=== PATIENT | male | born 1945 | race Caucasian/White ===

== ENCOUNTER 2020-08-08 17:21 | Emergency (ER) | payer BC, OTHER ==
[2020-08-08 17:29] VITALS: TEMP 98.2; BMI 27.3
--- NOTE | 2020-08-08 17:48 | PDOC ---
History of Present Illness - General Chief Complaint: Seizure Stated Complaint: WEAK/EVALUATION Time Seen by Provider: 08/08/20 17:46 History Source: Patient Exam Limitations: No Limitations - History of Present Illness Initial Comments: 08/08/20 17:47 HPI: This is a 75 y/o male with a PMH of epilepsy on Keppra, colon cancer s/p resection and chemo, pre-diabetes, HTN, HLD, CHF, afib on eliquis and sleep apnea presenting to the ED because of a presumed seizure that occurred last night while he was sleeping. Per the , she tried to wake him up at 8am and he was too tired to get up which is atypical. Most of his seizures have occurred at night, and were followed by a period of weakness and lethargy. His last seizure was in 2013, and he is compliant with his Keppra. Last dose was this a.m. He just completed a course of chemo for his colon cancer in April and was celebrating good lab results last night with one glass of alcohol. He did not wear his mouth guard last night which is prescribed for his sleep apnea, which was a suspected trigger for his seizures. Additionally, the also notes that he had a resting tremor in his right hand this afternoon which is not typical of his seizures in the past. The patient reports that he feels back to his baseline mentally, but still endorses feeling tired and weak. Denies recent illness, chest pain, cough, SOB, abdominal pain, N/V diarrhea, headache. PCP: Dr. Anand Neuro: Dr. Macias ROS: GENERAL/CONSTITUTIONAL: No fever/chills. Yes weakness. HEAD, EYES, EARS, NOSE AND THROAT: No change in vision. No sore throat. CARDIOVASCULAR: No chest pain or shortness of breath. RESPIRATORY: No cough, wheezing GASTROINTESTINAL: No nausea, vomiting GENITOURINARY: No dysuria, frequency MUSCULOSKELETAL: No joint or muscle swelling or pain. SKIN: No rash NEUROLOGIC: No headache, or change in strength/sensation. R. resting arm tremor which has resolved. ALLERGIC/IMMUNOLOGIC: No hives or skin allergy. PMH: epilepsy on Keppra, colon cancer s/p resection and chemo, pre-diabetes, HTN, HLD, CHF, afib on eliquis, and sleep apnea PSx: Partial colon resection Social Hx: Denied tobacco, 1 glass etoh last night Meds: See nurse note Allergies: Denied PE: GENERAL: Awake, alert, and fully oriented, in no acute distress. Non toxic appearing. Patient conversational. HEAD: No signs of trauma EYES: PERRLA, EOMI ENT: Hearing grossly normal, Moist mucosa NECK: Normal ROM, supple LUNGS: Breath sounds equal, clear to auscultation bilaterally. No wheezes, and no crackles HEART: Normal S1 and S2. Systolic murmur. ABDOMEN: Soft, nontender, normoactive bowel sounds. EXTREMITIES: Normal range of motion, no edema. R. lower leg prosthesis. Strength and sensation intact bilaterally in upper and lower extremities. NEUROLOGICAL: Cranial nerves II through XII grossly intact. Normal speech. SKIN: Warm, Dry, normal turgor, no rashes or lesions noted. MDM: 08/08/20 18:20 This is a 75 y/o male with a PMH of epilepsy on Keppra presenting to the ED following a presumed seizure while he was sleeping last night. - Typical of his previous seizures which also occurred while he was sleeping - back to baseline per patient and . - Hasn't had a seizure in 6 years though, so will check fingerstick and head CT given recent colon cancer to check for possible mets - Seizure likely due to etoh last night and not wearing his mouth guard - Spoke with Dr. Ramirez, [employer] consultant for Dr. Macias who states she's ok with head CT and if normal to d/c with follow-up - fingerstick 228 08/08/20 19:41 CT head w/o contrast: No evidence of intracranial pathology - Most likely due to alcohol and not wearing mouth guard. - Patient stable for d/c with neuro follow-up and return precautions Past History - Medical History Allergies/Adverse Reactions: Allergies Allergy/AdvReac Type Severity Reaction Status Date / Time No Known Allergies Allergy Verified 10/26/19 09:53 Home Medications: Ambulatory Orders Allopurinol [Zyloprim -] 300 mg PO DAILY 03/10/14 Atenolol/Chlorthalidone [Tenoretic 50/25 Tablet] 1 each PO BID 03/10/14 Ezetimibe/Simvastatin [Vytorin 10-40 mg Tablet] 1 each PO DAILY 03/10/14 Furosemide [Lasix -] 20 mg PO DAILY 03/10/14 Metformin HCl [Glucophage] 1,000 mg PO BID 03/10/14 Potassium Chloride 20 meq PO DAILY 03/10/14 levETIRAcetam [Keppra -] 500 mg PO BID #14 tablet 03/25/14 Prednisolone Acetate [Pred Forte 1% -] 1 drop OU Q2H 08/17/14 Sitagliptin Phosphate [Januvia] 100 mg PO DAILY 08/17/14 Anemia: No Asthma: No Cancer: No Cardiac Disorders: No CVA: No COPD: No CHF: No Dementia: No Diabetes: Yes GI Disorders: No Disorders: No HTN: Yes Hypercholesterolemia: Yes Liver Disease: No Seizures: Yes Thyroid Disease: No - Surgical History Abdominal Surgery: No Appendectomy: No Cardiac Surgery: No Cholecystectomy: No Lung Surgery: No Neurologic Surgery: No Orthopedic Surgery: Yes (RBK AMPUTATION 1976) - Immunization History Immunization Up to Date: Yes - Psycho-Social/Smoking History Smoking History: Never smoked Have you smoked in the past 12 months: No Number of Cigarettes Smoked Daily: 0 If you are a former smoker, when did you quit?: 1980 Cigars Per Day: 0 Information on smoking cessation initiated: No - Substance Abuse Hx (Audit-C & DAST Scrn) How often the patient has a drink containing alcohol: Monthly or less How often the patient has six or more drinks on one occasion: Less than monthly Score: In Men: 4 or > Positive; In Women: 3 or > Positive: 2 Screen Result (Pos requires Nsg. Audit-10AR): Negative In the last yr the pt used illegal drug/Rx for NonMed reason: No Score: Yes response is considered Positive: 0 Screen Result (Positive result requires Nsg. DAST-10): Negative *Physical Exam - Vital Signs Last Vital Signs Temp Pulse Resp BP Pulse Ox 98.2 F 79 16 117/53 L 98 08/08/20 17:26 08/08/20 17:26 08/08/20 17:26 08/08/20 17:26 08/08/20 17:26 Heart Score/ECG Review - ECG Intrepretation Comment:: 08/08/20 19:[address] elevations. Atrial fibrillation with competing junctional pacemaker Prolonged QT Vent rate 83bpm QRS duration 84ms QT/QTc 418/491ms Discharge - Discharge Information Problems reviewed: Yes Clinical Impression/Diagnosis: Seizure Qualifiers: Convulsion type: unspecified Qualified Code(s): R56.9 - Unspecified convulsions Condition: Stable Disposition: HOME - Admission No - Follow up/Referral Referrals: Jai Anand MD [Primary Care Provider] - - Patient Discharge Instructions Patient Printed Discharge Instructions: DI for Seizure Disorder -- Adult Additional Instructions: You came to the emergency department today because you had a seizure last night. We did a CT scan of your head and everything looked okay. Please follow-up with your neurologist, Dr. Macias in the next few days. - Post Discharge Activity
--- NOTE | 2020-08-08 19:00 | PDOC ---
Documentation entered by Isai William SCRIBE, acting as scribe for Desiree Perry DO. Desiree Perry, : This documentation has been prepared by the Nataliia pandey Xhesika, SCRIBE, under my direction and personally reviewed by me in its entirety. I confirm that the documentation accurately reflects all work, treatment, procedures, and medical decision making performed by me. Attending Attestation - Resident Resident Name: AltafMariya - ED Attending Attestation I have performed the following: I have examined & evaluated the patient, The case was reviewed & discussed with the resident, I agree w/resident's findings & plan, Exceptions are as noted - HPI HPI: 08/08/20 17:48 The patient is a 75y/o M with a pmh of HTN, HLD, fever disorder, preDM, Afib on Eliquis, colon ca (finished chemo in April with mets to liver only) and seizures (complaint with medication, last breakthrough seizure was over 3 years ago) who presents to the ED s/p Seizure and generalized weakness. Pt states he had outpatient labs done with Dr. Anand and everything was normal. Per , pt had one drink alst night. states pt was unarousable this morning and pt did not wake up to eat breakfast, which usually happens when he has had his previous seizures. Pt states when he woke up he felt weak, was unable to walk or get out of bed and his arm felt shaky afterwards. Pt states he took his Keppra this morning when he got up and ate a banana. Pt state he called his Neurologist and was told to come to the ED for further evaluation. Pt denies chest pain, SOB, headache or dizziness. Pt denies fevers, chills, N/V/D. Denies any URI symptoms. Allergies: NKDA PCP: Jai Anne - Physicial Exam PE: 08/08/20 17:50 GENERAL: Awake, alert, and fully oriented, in no acute distress HEAD: No signs of trauma NECK: Normal ROM, supple, no lymphadenopathy, JVD, or masses LUNGS: Breath sounds equal, clear to auscultation bilaterally. No wheezes, and no crackles HEART: +irregularly irregular , no murmurs, rubs or gallops ABDOMEN: Soft, nontender, normoactive bowel sounds. No guarding, no rebound. No masses EXTREMITIES: Normal range of motion, no edema. No clubbing or cyanosis. No cords, erythema.No c-spine or L spine tenderness. NEUROLOGICAL: Cranial nerves II through XII grossly intact. Upper and L lower extremities strength intact. Moving all extremities SKIN: Warm, Dry, normal turgor, no rashes lesions noted. - Medical Decision Making 08/08/20 18:47 a/p: 75yo male with a hx of epilepsy with a poss seizure today -first break through seizure in years -compliant with meds, did drink etoh last night -resident discussed the case with his neurologist who requests head ct -pt with recent hx of colon ca s/p chemo and surgical resection -will check glu -no other systemic complaints -will monitor and reassesss -given a bagged dinner 08/08/20 20:24 no acute findings on head ct stable for dc to home no seizure activity while in the ER Heart Score/ECG Review - ECG Intrepretation Comment:: 08/08/20 18:52 afib at 83, R axis, qtc 491, no acute st/t wave findings, abnl ekg Discharge - Discharge Information Problems reviewed: Yes Clinical Impression/Diagnosis: Seizure Qualifiers: Convulsion type: unspecified Qualified Code(s): R56.9 - Unspecified convulsions Condition: Stable Disposition: HOME - Admission No - Follow up/Referral Referrals: Jai Anand MD [Primary Care Provider] - - Patient Discharge Instructions Patient Printed Discharge Instructions: DI for Seizure Disorder -- Adult Additional Instructions: You came to the emergency department today because you had a seizure last night. We did a CT scan of your head and everything looked okay. Please follow-up with your neurologist, Dr. Macias in the next few days. - Post Discharge Activity
[2020-08-08 20:41] VITALS: BP 123/77; PULSE 90
--- NOTE | 2020-08-09 12:37 | EKG ---
Test Reason : Blood Pressure : / mmHG Vent. Rate : 083 BPM Atrial Rate : 070 BPM P-R Int : 000 ms QRS Dur : 084 ms QT Int : 418 ms P-R-T Axes : 000 100 029 degrees QTc Int : 491 ms ATRIAL FIBRILLATION RIGHTWARD AXIS PROLONGED QT ABNORMAL ECG WHEN COMPARED WITH ECG OF 05-JUL-2017 09:16, ATRIAL FIBRILLATION HAS REPLACED SINUS RHYTHM Confirmed by WILLIAMS OCHOA MD ([id number]) on 08/09/2020 12:37:40 PM Referred By: Confirmed By:WILLIAMS OCHOA MD
== END 2020-08-08 20:42 | disposition home or self-care (01) ==
LOC: JER 17:21
DX: R56.9 Unspecified convulsions (principal)
CPT/HCPCS: 70450-TC; 82962; 93005; 93010; 99285-25

== ENCOUNTER 2021-06-28 21:17 | Inpatient (IN) | payer BC, OTHER ==
[2021-06-28 21:22] VITALS: BMI 27.2
[2021-06-28 23:27] LABS: BASO % 0.4 % (0-2.0); EOS % 2.5 % (0-4.5); HEMATOCRIT 33.6 % (35.4-49); HEMOGLOBIN 11.5 GM/dL (11.7-16.9); LYMPH % 14.8 % (8-40); MCH 32.6 pg (25.7-33.7); MCHC 34.4 g/dl (32.0-35.9); MEAN CELL VOLUME 94.8 fl (80-96); MEAN PLT VOLUME 7.9 fl (7.5-11.1); MONO % 13.7 % (3.8-10.2); NEUT % 68.6 % (42.8-82.8); PLATELET COUNT 233 10^3/uL (134-434); RBC 3.55 M/mm3 (4.00-5.60); RDW 14.5 % (11.9-15.9); WHITE BLOOD COUNT 7.6 K/mm3 (4.0-10.0)
[2021-06-28 23:49] LABS: CHLORIDE 106 mmol/L (98-107); SODIUM 141 mmol/L (136-145)
[2021-06-28 23:51] LABS: CALCIUM 8.2 mg/dL (8.5-10.1)
[2021-06-28 23:52] LABS: ALBUMIN 3.8 g/dl (3.4-5.0); ANION GAP 12 MMOL/L (8-16); BLOOD UREA NITROGEN 17.5 mg/dL (7-18); CO2 23 mmol/L (21-32); GLUCOSE,RANDOM 92 mg/dL (74-106)
[2021-06-28 23:55] LABS: CREATININE 1.3 mg/dL (0.55-1.3); SGOT/AST 32 U/L (15-37); SGPT/ALT 46 U/L (13-61)
[2021-06-28 23:56] LABS: BILIRUBIN,TOTAL 0.4 mg/dL (0.2-1); TOT PROT 6.6 g/dl (6.4-8.2)
[2021-06-28 23:58] LABS: ALK PHOS 135 U/L (45-117)
[2021-06-29 01:02] LABS: EPI CELLS 6 /uL (0-25.1); HYALINE CASTS 1 /uL (0-3.1); URINE APPEARANCE CLEAR; URINE BACTERIA 49 /uL (0-1359); URINE BILIRUBIN NEGATIVE (NEGATIVE); URINE COLOR YELLOW; URINE GLUCOSE (UA) NEGATIVE (NEGATIVE); URINE KETONE NEGATIVE (NEGATIVE); URINE LEUK ESTERASE NEGATIVE (NEGATIVE); URINE NITRITE NEGATIVE (NEGATIVE); URINE PROTEIN 2+ (NEGATIVE); URINE RBC 4 /uL (0-23.9); URINE UROBILINOGEN 0.2 mg/dL (0.2-1.0); URINE WBC 4 /uL (0-25.8)
[2021-06-29] MEDS ORDERED: levETIRAcetam 500 MG/5 ML INJECTION VIAL IVPB ONE (04:32)
[2021-06-29] MEDS: INSULIN SLIDING SCALE (NOVOLOG) 1 VIAL SQ SCH ×4 (08:34→21:03)
[2021-06-29 11:01] LABS: CALCIUM 8.5 mg/dL (8.5-10.1)
[2021-06-29 11:02] LABS: ALBUMIN 3.8 g/dl (3.4-5.0); BLOOD UREA NITROGEN 15.7 mg/dL (7-18); MAGNESIUM 2.1 mg/dL (1.8-2.4)
[2021-06-29 11:05] LABS: BILIRUBIN,TOTAL 0.4 mg/dL (0.2-1); CREATININE 1.2 mg/dL (0.55-1.3); PHOSPHOROUS 3.3 mg/dL (2.5-4.9)
[2021-06-29 11:06] LABS: TOT PROT 6.7 g/dl (6.4-8.2)
[2021-06-29 11:07] LABS: BASO % 0.8 % (0-2.0); EOS % 1.8 % (0-4.5); HEMATOCRIT 34.6 % (35.4-49); LYMPH % 12.1 % (8-40); MCH 32.9 pg (25.7-33.7); MCHC 34.9 g/dl (32.0-35.9); MEAN CELL VOLUME 94.5 fl (80-96); MEAN PLT VOLUME 7.7 fl (7.5-11.1); MONO % 13.7 % (3.8-10.2); NEUT % 71.6 % (42.8-82.8); PLATELET COUNT 235 10^3/uL (134-434); RBC 3.66 M/mm3 (4.00-5.60); RDW 14.6 % (11.9-15.9); WHITE BLOOD COUNT 8.7 K/mm3 (4.0-10.0)
[2021-06-29 11:09] LABS: URIC ACID 7.3 mg/dL (2.6-7.2)
[2021-06-29] MEDS: levETIRAcetam 500 MG TABLET (FP) PO SCH ×2 (11:19→21:03)
[2021-06-29] MEDS ORDERED: levETIRAcetam 500 MG TABLET (FP) PO ONE ×2 (11:19→20:24)
[2021-06-29] MEDS ORDERED: ATORVASTATIN CA 10 MG TABLET (FP) ONE (21:20)
[2021-06-29] MEDS: ALLOPURINOL 300 MG TABLET (FP) PO SCH (21:59)
[2021-06-29] MEDS: ATORVASTATIN CA 10 MG TABLET (FP) PO SCH (22:00)
[2021-06-29] MEDS: EZETIMIBE 10 MG TABLET (FP) PO SCH (22:00)
[2021-06-30 07:56] LABS: BASO % 0.6 % (0-2.0); HEMATOCRIT 36.9 % (35.4-49); HEMOGLOBIN 12.9 GM/dL (11.7-16.9); LYMPH % 9.5 % (8-40); MCH 33.3 pg (25.7-33.7); MEAN CELL VOLUME 95.2 fl (80-96); MONO % 14.2 % (3.8-10.2); NEUT % 73.7 % (42.8-82.8); PLATELET COUNT 199 10^3/uL (134-434); RBC 3.87 M/mm3 (4.00-5.60); RDW 14.6 % (11.9-15.9); WHITE BLOOD COUNT 6.7 K/mm3 (4.0-10.0)
[2021-06-30 08:11] VITALS: BP 146/80; PULSE 72; TEMP 98.3
[2021-06-30] MEDS ORDERED: SODIUM CHLORIDE 1,000 ML IV SCH (08:15)
[2021-06-30] MEDS: INSULIN SLIDING SCALE (NOVOLOG) 1 VIAL SQ SCH (08:15)
[2021-06-30 08:33] LABS: CALCIUM 8.6 mg/dL (8.5-10.1)
[2021-06-30 08:34] LABS: BLOOD UREA NITROGEN 13.3 mg/dL (7-18)
[2021-06-30 08:38] LABS: BILIRUBIN,TOTAL 0.9 mg/dL (0.2-1); CREATININE 1.3 mg/dL (0.55-1.3); TOT PROT 6.9 g/dl (6.4-8.2)
[2021-06-30] MEDS ORDERED: FUROSEMIDE 20 MG TABLET (FP) PO SCH (10:00)
[2021-06-30] MEDS ORDERED: amLODIPine BESYLATE 5 MG TABLET (FP) PO SCH (10:00)
[2021-06-30] MEDS ORDERED: APIXABAN 5 MG TABLET PO SCH (10:00)
[2021-06-30] MEDS ORDERED: ATENOLOL 50 MG TABLET (FP) PO SCH (10:00)
[2021-06-30] MEDS ORDERED: LACOSAMIDE 50 MG TABLET PO SCH (10:00)
[2021-06-30] MEDS ORDERED: LACOSAMIDE 50 MG TABLET PO ONE (10:21)
[2021-06-30] MEDS ORDERED: ATENOLOL 25 MG TABLET (FP) ONE (10:22)
[2021-06-30] MEDS ORDERED: APIXABAN 5 MG TABLET ONE (10:22)
[2021-06-30] MEDS ORDERED: amLODIPine BESYLATE 5 MG TABLET (FP) ONE (10:22)
[2021-06-30] MEDS ORDERED: FUROSEMIDE 40 MG TABLET (FP) ONE (10:22)
[2021-06-30] MEDS ORDERED: levETIRAcetam 500 MG TABLET (FP) PO ONE (10:22)
[2021-06-30] MEDS ORDERED: ATORVASTATIN CA 10 MG TABLET (FP) ONE (10:23)
[2021-06-30] MEDS ORDERED: PT OWN MED DRAWER 7, Y5N ONE ×2 (10:24→10:41)
[2021-06-30] MEDS ORDERED: INSULIN SLIDING SCALE (NOVOLOG) 1 VIAL SQ ONE (10:28)
[2021-06-30] MEDS: levETIRAcetam 500 MG TABLET (FP) PO SCH (10:38)
[2021-06-30] MEDS: EZETIMIBE 10 MG TABLET (FP) PO SCH (10:39)
[2021-06-30] MEDS: ALLOPURINOL 300 MG TABLET (FP) PO SCH (10:39)
[2021-06-30] MEDS: ATORVASTATIN CA 10 MG TABLET (FP) PO SCH (10:39)
== END 2021-06-30 16:21 | disposition home or self-care (01) | DRG 312 ==
LOC: JER 21:17 → JERBED 06-29 02:40 → OBSVTOIN 06-29 04:21 → INTOOBSV 06-29 04:21
PROVIDERS: ADMIT Internal Medicine; ATTEND Internal Medicine
DX: R55 Syncope and collapse (principal); K21.9 Gastro-esophageal reflux disease without esophagitis; S09.90XA Unspecified injury of head, initial encounter; W19.XXXA Unspecified fall, initial encounter; Y93.9 Activity, unspecified; Y92.9 Unspecified place or not applicable; Y99.9 Unspecified external cause status; I10 Essential (primary) hypertension; E11.9 Type 2 diabetes mellitus without complications
CPT/HCPCS: 36415; 70450-TC; 72125-TC; 80053; 80061; 80177; 80307; 81003; 82550; 82553; 82962; 83036; 83735; 84100; 84443; 84484; 84550; 85025; 93005; 93010; 93880-TC; 99285-25; C9803; G0378; G0480; U0003; U0005

== ENCOUNTER 2025-05-26 13:42 | Inpatient (IN) | payer BC ==
[2025-05-26] MEDS ORDERED: ROCURONIUM BROMIDE 50 MG/5 ML SYRINGE ONE (14:40)
[2025-05-26] MEDS ORDERED: RAPID SEQUENCE INTUBATION KIT NR ONE (14:40)
[2025-05-26] MEDS ORDERED: MIDAZOLAM IN 0.9 % SOD.CHLORID 1 MG/1 ML PLAST..BAG ONE (14:47)
[2025-05-26 15:08] LABS: ABSOLUTE IMMATURE GRANULOCYTES 0.34 x10^3/uL (0.0-0.031); BASOPHILS # 0.03 x10^3/uL (0.01-0.08); EOSINOPHIL % 0.3 % (0.8-7.0); EOSINOPHILS # 0.03 x10^3/uL (0.04-0.54); MCHC 31.1 g/dl (32.3-36.5); MEAN CELL VOLUME 102.9 fl (79.0-92.2); MEAN PLT VOLUME 9.7 fl (9.4-12.4); MONOCYTE # 1.24 x10^3/uL (0.30-0.82); MONOCYTE % 10.8 % (5.3-12.2); RDW 13.1 % (12.2-16.6)
[2025-05-26] MEDS: FENTANYL NS IVPB 500 MCG/100 ML BAG IVPB SCH ×2 (15:15→21:13)
[2025-05-26] MEDS: MIDAZOLAM IN 0.9 % SOD.CHLORID 100 MG/100 ML PLAST..BAG IVPB SCH (15:15)
[2025-05-26] MEDS ORDERED: FENTANYL NS IVPB 500 MCG/100 ML BAG IVPB ONE (15:17)
[2025-05-26 15:23] LABS: BG HCT 40.0 % (35.4-49); VENOUS BASE EXCESS -2.8 mmol/L (-2-2); VENOUS O2 SATURATION 74.7 % (70-80); VENOUS PCO2 53.1 mmHg (38-52); VENOUS PH 7.283 (7.310-7.410)
[2025-05-26 15:41] LABS: LACTIC ACID 11.1 mmol/L (0.4-2.0)
[2025-05-26 15:44] LABS: CO2 23.0 mmol/L (21-32); GLUCOSE,RANDOM 216.0 mg/dL (74-106)
[2025-05-26 15:46] LABS: CREATININE 2.3 mg/dL (0.55-1.3); SGOT/AST 51.0 U/L (15-37); SGPT/ALT 38.0 U/L (13-61)
[2025-05-26 15:48] LABS: TOT PROT 7.1 g/dl (6.4-8.2)
[2025-05-26 15:49] LABS: ALK PHOS 323.0 U/L (45-117)
[2025-05-26] MEDS ORDERED: PROPOFOL 1,000,000 MCG/100 ML VIAL ONE (17:18)
[2025-05-26] MEDS: PROPOFOL 1,000,000 MCG/100 ML VIAL IVPB SCH (17:30)
[2025-05-26] MEDS: SODIUM CHLORIDE 1,000 ML IV STA (19:25)
[2025-05-26] MEDS: PIPERACILLIN/TAZOB 3.375 GM 3.375 GM in DEXTROSE 5%-WATER - 50 ML IVPB SCH (20:21)
[2025-05-26 20:49] LABS: ARTERIAL BLD GAS O2 SATURATION 99.1 % (95-98); ARTERIAL BLOOD GAS BASE EXCESS -0.3 mmol/L (-2-2); ARTERIAL BLOOD GAS PCO2 32.90 mmHg (35-45); ARTERIAL BLOOD GAS PO2 157.8 mmHg (80-100); BG HCT 36.0 % (35.4-49)
[2025-05-26 21:01] LABS: ALLENS TEST POSITIVE; VENT MODE A/C
[2025-05-26 21:02] LABS: VENT RATE 12
[2025-05-26] MEDS: HEPARIN NA (PORCINE) 5,000 UNITS/ML 1ML VIAL SQ SCH (21:13)
[2025-05-26] MEDS: levETIRAcetam 500 MG/5 ML INJECTION VIAL IVPB SCH (21:14)
[2025-05-26 22:14] LABS: LACTIC ACID 3.2 mmol/L (0.4-2.0)
[2025-05-27 06:20] LABS: ABSOLUTE IMMATURE GRANULOCYTES 0.05 x10^3/uL (0.0-0.031); BASOPHILS # 0.02 x10^3/uL (0.01-0.08); EOSINOPHIL % 2.2 % (0.8-7.0); EOSINOPHILS # 0.20 x10^3/uL (0.04-0.54); MCHC 31.7 g/dl (32.3-36.5); MEAN CELL VOLUME 100.6 fl (79.0-92.2); MEAN PLT VOLUME 10.1 fl (9.4-12.4); MONOCYTE # 1.02 x10^3/uL (0.30-0.82); MONOCYTE % 11.4 % (5.3-12.2); RDW 13.2 % (12.2-16.6)
[2025-05-27 06:49] LABS: CO2 27.0 mmol/L (21-32); GLUCOSE,RANDOM 143.0 mg/dL (74-106)
[2025-05-27 06:52] LABS: CREATININE 1.8 mg/dL (0.55-1.3)
[2025-05-27] MEDS: PANTOPRAZOLE SODIUM 40 MG VIAL IVPUSH SCH (09:46)
[2025-05-28 06:42] LABS: MCHC 31.1 g/dl (32.3-36.5); MEAN CELL VOLUME 102.4 fl (79.0-92.2); MEAN PLT VOLUME 10.3 fl (9.4-12.4); RDW 13.4 % (12.2-16.6)
[2025-05-28 07:25] LABS: CO2 26.0 mmol/L (21-32); GLUCOSE,RANDOM 170.0 mg/dL (74-106)
[2025-05-28 07:28] LABS: CREATININE 1.7 mg/dL (0.55-1.3)
[2025-05-28 15:52] VITALS: BMI 24.2
[2025-05-28] MEDS: DORZOLAMIDE HCL/TIMOLOL OPHTHALMIC SOLUTION 10 ML BOTTLE OU SCH (21:27)
[2025-05-28] MEDS: BRIMONIDINE TARTRATE 0.2% OPHTHALMIC 5 ML BOTTLE OU SCH (21:27)
[2025-05-28] MEDS: HEPARIN NA (PORCINE) 5,000 UNITS/ML 1ML VIAL SQ SCH (21:27)
[2025-05-28] MEDS: levETIRAcetam 500 MG/5 ML INJECTION VIAL IVPB SCH (21:28)
[2025-05-29] MEDS: INSULIN ASPART SLIDING SCALE (NOVOLOG) 1 VIAL SQ SCH (06:10)
[2025-05-29] MEDS ORDERED: INSULIN ASPART SLIDING SCALE (NOVOLOG) 1 VIAL SQ SCH (07:00)
[2025-05-29 09:14] LABS: ABSOLUTE IMMATURE GRANULOCYTES 0.06 x10^3/uL (0.0-0.031); BASOPHILS # 0.02 x10^3/uL (0.01-0.08); EOSINOPHIL % 1.9 % (0.8-7.0); EOSINOPHILS # 0.18 x10^3/uL (0.04-0.54); MCHC 31.2 g/dl (32.3-36.5); MEAN CELL VOLUME 101.8 fl (79.0-92.2); MEAN PLT VOLUME 10.0 fl (9.4-12.4); MONOCYTE # 1.22 x10^3/uL (0.30-0.82); MONOCYTE % 12.8 % (5.3-12.2); RDW 13.3 % (12.2-16.6)
[2025-05-29] MEDS: ATENOLOL 50 MG TABLET (FP) PO SCH (10:02)
[2025-05-29] MEDS: ASPIRIN COATED 81 MG TABLET.EC PO SCH (10:02)
[2025-05-29] MEDS: PANTOPRAZOLE SODIUM 40 MG VIAL IVPUSH SCH (10:03)
[2025-05-29 10:05] LABS: CREATININE 1.5 mg/dL (0.55-1.3)
[2025-05-29 10:06] LABS: SGPT/ALT 28.0 U/L (13-61)
[2025-05-29 10:07] LABS: GLUCOSE,RANDOM 179.0 mg/dL (74-106); TOT PROT 6.2 g/dl (6.4-8.2)
[2025-05-29 10:09] LABS: CO2 26.0 mmol/L (21-32)
[2025-05-29 10:11] LABS: SGOT/AST 38.0 U/L (15-37)
[2025-05-29 10:16] LABS: ALK PHOS 364.0 U/L (45-117)
[2025-05-29] MEDS: PIPERACILLIN/TAZOB 3.375 GM 3.375 GM in DEXTROSE 5%-WATER - 50 ML IVPB SCH ×3 (14:09→22:15)
[2025-05-29] MEDS: LACOSAMIDE 50 MG TABLET PO SCH (21:49)
[2025-05-29] MEDS: levETIRAcetam 500 MG TABLET (FP) PO SCH (21:50)
[2025-05-30 01:40] VITALS: RESP 18
[2025-05-30 08:46] LABS: ABSOLUTE IMMATURE GRANULOCYTES 0.06 x10^3/uL (0.0-0.031); BASOPHILS # 0.02 x10^3/uL (0.01-0.08); EOSINOPHIL % 2.4 % (0.8-7.0); EOSINOPHILS # 0.24 x10^3/uL (0.04-0.54); MCHC 31.8 g/dl (32.3-36.5); MEAN CELL VOLUME 100.3 fl (79.0-92.2); MEAN PLT VOLUME 10.2 fl (9.4-12.4); MONOCYTE # 1.16 x10^3/uL (0.30-0.82); MONOCYTE % 11.7 % (5.3-12.2); RDW 13.2 % (12.2-16.6)
[2025-05-30 09:29] LABS: GLUCOSE,RANDOM 151.0 mg/dL (74-106)
[2025-05-30 09:30] LABS: CO2 25.0 mmol/L (21-32)
[2025-05-30 09:31] LABS: CREATININE 1.5 mg/dL (0.55-1.3)
[2025-05-30 09:32] LABS: TOT PROT 5.7 g/dl (6.4-8.2)
[2025-05-30 09:33] LABS: ALK PHOS 335.0 U/L (45-117); SGOT/AST 32.0 U/L (15-37); SGPT/ALT 29.0 U/L (13-61)
[2025-05-30] MEDS: PANTOPRAZOLE 40 MG TABLET PO SCH (09:56)
[2025-05-30] MEDS: TAMSULOSIN HCL 0.4 MG CAP PO SCH (21:39)
[2025-05-31 08:51] LABS: ABSOLUTE IMMATURE GRANULOCYTES 0.08 x10^3/uL (0.0-0.031); BASOPHILS # 0.02 x10^3/uL (0.01-0.08); EOSINOPHIL % 5.3 % (0.8-7.0); EOSINOPHILS # 0.44 x10^3/uL (0.04-0.54); MCHC 31.8 g/dl (32.3-36.5); MEAN CELL VOLUME 101.0 fl (79.0-92.2); MEAN PLT VOLUME 10.2 fl (9.4-12.4); MONOCYTE # 0.85 x10^3/uL (0.30-0.82); MONOCYTE % 10.2 % (5.3-12.2); RDW 13.4 % (12.2-16.6)
[2025-05-31] MEDS: ALLOPURINOL 300 MG TABLET (FP) PO SCH (09:11)
[2025-05-31 09:13] LABS: GLUCOSE,RANDOM 142.0 mg/dL (74-106)
[2025-05-31 09:14] LABS: CO2 24.0 mmol/L (21-32)
[2025-05-31 09:16] LABS: CREATININE 1.4 mg/dL (0.55-1.3)
[2025-05-31 09:17] LABS: SGOT/AST 34.0 U/L (15-37); SGPT/ALT 29.0 U/L (13-61)
[2025-05-31 09:18] LABS: TOT PROT 5.5 g/dl (6.4-8.2)
[2025-05-31 09:19] LABS: ALK PHOS 318.0 U/L (45-117)
[2025-05-31 13:48] VITALS: BP 112/69; PULSE 67; TEMP 97.4
== END 2025-05-31 17:21 | DRG 100 ==
LOC: JER 13:42 → JERBED 14:58 → JICU 17:16 → J8W 05-28 18:44
PROVIDERS: ADMIT Internal Medicine Pulmonary Disease; ATTEND Nurse Practitioner Acute Care
PROC: 5A1935Z Respiratory Ventilation, Less than 24 Consecutive Hours (ICD-10-PCS; principal; 2025-05-26)
PROC: 0BH17EZ Insertion of Endotracheal Airway into Trachea, Via Natural or Artificial Opening (ICD-10-PCS; 2025-05-26)
PROC: 5A12012 Performance of Cardiac Output, Single, Manual (ICD-10-PCS; 2025-05-26)
DX: G40.901 Epilepsy, unspecified, not intractable, with status epilepticus (principal); I46.9 Cardiac arrest, cause unspecified; J69.0 Pneumonitis due to inhalation of food and vomit; J96.01 Acute respiratory failure with hypoxia; C78.7 Secondary malignant neoplasm of liver and intrahepatic bile duct; I50.32 Chronic diastolic (congestive) heart failure; F10.239 Alcohol dependence with withdrawal, unspecified; N17.9 Acute kidney failure, unspecified; J98.11 Atelectasis; J90 Pleural effusion, not elsewhere classified; C18.9 Malignant neoplasm of colon, unspecified; I11.0 Hypertensive heart disease with heart failure; I48.91 Unspecified atrial fibrillation; E11.9 Type 2 diabetes mellitus without complications; I25.10 Atherosclerotic heart disease of native coronary artery without angina pectoris; E78.5 Hyperlipidemia, unspecified
CPT/HCPCS: 36415; 36600; 70450-TC; 71045-TC-FY; 80048; 80053; 80177; 82550; 82553; 82803; 82962; 83605; 83735; 83880; 84100; 84484; 85025; 85027; 87635; 87637-QW; 93005; 93010; 93306-TC; 94002; 94660; 95816; 97116-GP; 97162-GP; 99291; G0480